=== PATIENT | male | born 1990 | race African-American/Black ===

== ENCOUNTER 2022-11-07 20:28 | Emergency (ER) | payer MEDICAID ==
[~2022-11-07] VITALS: Ht 177.8 cm; Wt 76.7 kg
[2022-11-07 20:34] VITALS: BP 141/90
== END 2022-11-07 22:54 | disposition left against medical advice (07) ==
LOC: ER 20:28
DX: Z53.21 Procedure and treatment not carried out due to patient leaving prior to being seen by health care provider (principal)
CPT/HCPCS: 99281